=== PATIENT | female | born 1945 | race Caucasian/White ===

== ENCOUNTER 2021-05-21 12:50 | Inpatient (IN) | payer MEDICARE, SELFPAY ==
--- NOTE | 2021-05-21 15:23 | PC.ADMIT ---
China Lester is a 75 year who presented to the unit in a stretcher. China was escorted by flat spring assembler bringing her from [facility]. China presents with DM and reports checking sugars twice a day once before breakfast and once before bed time. China is independent and ambulates with a steady gate, China presented after a visit with her PCP. The PCP noted that China was off baseline, disorganized thoughts, tangential, and circumstantial responses to questions . China reports that she lives alone in an apartment on the first floor, and that her daughter and grandson live upstairs. China states that she is able to do all her own cooking, cleaning, groceries, showering, and driving. China report that she goes to the senior center often and participates in a chair workout class. China is presenting with heightened anxiety and states that she has been pulling out clumps of hair . She denies knowing what the anxiety is due to. China currently denies SI/HI/Ah/VH. She reports that she is feeling safe. China is alert and oriented x4. Patient is pleasant on approach and cooperative with admission. Patient is hyperverbal with pressured speech. China will answer a question with a lengthy response and then veer off course from the original question. China present with disorganized thought process. Patient reports that she has lost over 12 pounds and nobody know why. China states that she uses half a trazadone to sleep, but that hasn't been helping much anymore. My sleep has been off. Patient uses glasses at baselines. China has upper dentures with her, and reports that she has a partial denture for the bottom but she does not use it because she needs to see the dentist. China is currently being treated for a UTI as well. Patient denies any current complaints.
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
[2021-05-21 18:00] VITALS: BP 168/67; PULSE 74; RESP 18; TEMP 36.6; O2SAT 99
[2021-05-21] MEDS: cephALEXin 500 MG CAPSULE PO ×2 (18:07→20:16)
[2021-05-21] MEDS: metFORMIN HCl 1,000 MG TABLET 1000 MG PO (18:13)
[2021-05-21] MEDS: Gabapentin 100 MG CAPSULE PO (20:16)
[2021-05-21] MEDS: lamoTRIgine 25 MG TABLET PO (20:16)
[2021-05-21] MEDS: risperiDONE 0.25 MG TABLET PO (20:17)
[2021-05-21 21:46] LABS: Glucose, Whole Blood 99 mg/dL (60-115)
[2021-05-22 08:08] LABS: Anion Gap 12 (12-20); Blood Urea Nitrogen 17 mg/dL (9-16); Calcium 9.9 mg/dL (8.4-10.2); Carbon Dioxide 31 mmol/L (22-29); Chloride 103 mmol/L (96-108); Estimated Glomerular Filt Rate > 60; Glucose Random 133 mg/dL (60-115); Potassium 4.4 mmol/L (3.3-5.1); Sodium 142 mmol/L (135-145)
[2021-05-22 08:21] VITALS: BP 164/76; PULSE 85; RESP 17; TEMP 36.6; O2SAT 99
[2021-05-22] MEDS: cephALEXin 500 MG CAPSULE PO ×4 (08:31→20:23)
[2021-05-22] MEDS: Sertraline HCL 25 MG TABLET 75 MG PO (08:31)
[2021-05-22] MEDS: Gabapentin 100 MG CAPSULE PO ×2 (08:31→20:22)
[2021-05-22] MEDS: Atorvastatin Calcium 20 MG TABLET PO (08:31)
[2021-05-22] MEDS: metFORMIN HCl 1,000 MG TABLET 1000 MG PO ×2 (08:31→16:56)
[2021-05-22 10:53] LABS: Glucose, Whole Blood 153 mg/dL (60-115)
--- NOTE | 2021-05-22 14:08 | P.PNPSI_ITS ---
Subjective Subjective Date of Service: 05/22/21 Reason For Visit: si Interim History: pt seen on 05/22 pt manic, with pressured and disorganized speech, repeating the same sentence over and over, unable to finish a sentence. Pleasant and friendly with some insight saying she knows she rambles on and on and is trying to stop it but can not; no sI/hi or AVH. She referenced that she is being treated for UTI. Pt agrees to start Risperdal to help with the rambling. Mental Status Exam Mental Status Exam Narrative: A&O to person and place but only somewhat situation. In casual cloths, good hygiene but messy hair. Behavior is friendly and cooperative, with Good eye contact but distracted and moving about the room in disorganized way; No abnormal involuntary movements noted; pressured speech and difficult to interrupt; normal volume; Mood is ?anxious,? affect is anxious at times, but als o happy; Denies SI/SIB/HI upon inquiry. Denies A/VH. No delusional content expressed; Thought process can be briefly goal oriented but quickly becomes tangential and disorganized; and pt is unable to finish her sentences and sometimes gets caught up on a word, trying to annunciate it over and over but unable; Unknown cognitive or memory impairment. Insight/ Judgment impaired but knows needs help and wants medication. Diagnostics Vital Signs (24Hr): Vital Signs - 24 hr 05/21/21 18:00 05/22/21 08:21 Temperature 97.8 F 97.9 F Pulse Rate 74 85 Respiratory Rate 18 17 Blood Pressure 168/67 H 164/76 H Pulse Oximetry 99 99 Labs Results: 05/22/21 07:44 Labs: Laboratory Results - last 48 hr 05/21/21 05/22/21 05/22/21 21:42 07:44 10:38 Sodium 142 Potassium 4.4 Chloride 103 Carbon Dioxide 31 H Anion Gap 12 BUN 17 H Creatinine 0.79 Estim Creat Clear Calc TNP Estimated GFR > 60 POC Glucose 99 153 H Random Glucose 133 H Calcium 9.9 Medications Medications Current Medications Acetaminophen (Acetaminophen 325 Mg Tablet) 650 mg PO Q6H PRN PRN Reason: Headache/Pain Mild Scale (1-3) Al Hydroxide/Mg Hydroxide (Magnesium Hydrox/Alum Hydrox 30 Ml Oral.Susp) 30 ml PO Q6H PRN PRN Reason: Heartburn/Nausea Atorvastatin Calcium (Atorvastatin Calcium 20 Mg Tablet) 20 mg PO DAILY [facility] Last Admin: 05/22/21 08:31 Dose: 20 mg Documented by: Cephalexin HCl (Cephalexin 500 Mg Capsule) 500 mg PO QID [facility] Last Admin: 05/22/21 12:51 Dose: 500 mg Documented by: Gabapentin (Gabapentin 100 Mg Capsule) 100 mg PO BID [facility] Last Admin: 05/22/21 08:31 Dose: 100 mg Documented by: Hydroxyzine HCl (Hydroxyzine Hcl 25 Mg Tablet) 25 mg PO Q6H PRN PRN Reason: Anxiety Lamotrigine (Lamotrigine 25 Mg Tablet) 25 mg PO BEDTIME [facility] Last Admin: 05/21/21 20:16 Dose: 25 mg Documented by: Magnesium Hydroxide (Milk Of Magnesia 30 Ml Oral.Susp) 30 ml PO DAILY PRN PRN Reason: Constipation Metformin HCl (Metformin Hcl 1,000 Mg Tablet) 1,000 mg PO BIDWM [facility] Last Admin: 05/22/21 08:31 Dose: 1,000 mg Documented by: Risperidone (Risperidone 0.25 Mg Tablet) 0.5 mg PO BEDTIME [facility] Sertraline HCl (Sertraline Hcl 25 Mg Tablet) 75 mg PO DAILY [facility] Last Admin: 05/22/21 08:31 Dose: 75 mg Documented by: Trazodone HCl (Trazodone Hcl 50 Mg Tablet) 50 mg PO BEDTIME PRN PRN Reason: Insomnia Allergies Allergies Allergy/AdvReac Type Severity Reaction Status Date / Time No Known Allergies Allergy Verified 05/21/21 11:17 Assessment & Plan Assessment & Plan (1) MADELINE (generalized anxiety disorder): Status: Acute Code(s): F41.1 - Generalized anxiety disorder (2) Bipolar disorder, current episode hypomanic: Status: Acute Code(s): F31.0 - Bipolar disorder, current episode hypomanic Assessment and Plan: lyric writer covering pt seen 05/22 -friendly but manic with pressured and disorganized speech; disorganized beh avior -START Risperdal 0.5mg BID (will first give one time dose of 0.25) for rosemary, insomnia not resolving on low dose of Lamictal (which takes weeks to titrate to therapuetic dose) -will further lower Zoloft to 25mg to lower risk of it triggering rosemary, but will leave her for now to avoid discontinuation syndrome China is a 75 y.o. Female who carries a diagnosis of bipolar I disorder. She was referred to crisis due to presenting as off baseline, disorganized thought process, agitated, has been pulling out her hair on specific spot on her head, increased anxiety, and poor sleep/ appetite. She has hx of IPLOC at [place] in 2020. No current OP providers. Presents with recent memory issues, remote memory appears intact. Has hx of workup for dementia 2 yr ago, results did not show any pathology but family would like her to be re-assessed. Plan: Obtain records from PCP to review MRI, neuropsych testing from 2 yr ago. Obtain updated MOCA. Continue lamictal 25 mg and gabapentin 100 mg BID for mood stability, consider discontinuing gabapentin and optimizing dose of lamictal due to polypharm, uknown benefit Discontinue trazodone 25 mg as she denies benefit for sleep Decrease sertraline to 75 mg due to possible activating side effects, monitor for improvement in sx and consider titrating down on dose as it may be exacerbating sx Start risperdal 0.25 mg QHS for significant anxious distress, disorganized thought process Monitor response to medications. Monitor for safety in the milieu. Discharge on stabilization. Patient seen. Chart reviewed. Discussed with team. Obtain collateral contact info?as needed Greater than 50% of the session was spent on counseling and/or coordination of care Reason for contiued inpatient stay Substantial Risk for: inability to function
[2021-05-22 15:18] VITALS: BMI 22.6
--- NOTE | 2021-05-22 15:20 | HO.HSGERICON ---
History of Present Illness Data of Consult Service Date: 05/22/21 Requesting physician: Shirin Henderson Primary Care Provider: Unknown Physician HPI Reason for consult: transferred from outside facility This is a 75 year old female with a history of DM, bipolar disorder transferred to inpatient geriatric psych floor from [facility] for disorganized thoughts and increasing anxiety. The hospitalist service was consulted for routine medical evaluation as the patient was transferred from an outside facility. It was difficult to obtain an accurate history from the patient as she is disorganized, having difficulty focusing on questions and frequently interrupting. She was started on keflex for possible UTI at outside facility, she does not appear to have any urinary symptoms although this was difficult to ascertain. She denies any abdominal pain, nausea, vomiting. She denies any fever, chills. She does endorse urinary urgency although it is unclear if this is acute or chronic. She is focused on an area on her head where she states that she pulls her hair. She thinks area is causing her to act abnormally. Review of Systems Review of Systems: Yes all other systems are reviewed and are negative Constitutional: Constitutional: Denies chills and Denies fever(s) Cardiovascular: Cardiovascular: Denies chest pain Respiratory: Respiratory: Denies cough Gastrointestinal: Gastrointestinal: Denies abdominal pain [facility] Medical History (Updated 05/22/21 @ 15:29 by AMOS Iqbal) Diabetes HTN (hypertension) Functional capacity: independent ambulation Pertinent family history: mom - h/o CAD Social History Household Members: None Household Members Other:: Daughter lives up stairs in top floor apartment Housing: Apartment Patient Tobacco Use Status: Never used Tobacco Smoked in Last 30 Days: No Patient Interested in Nicotine Replacement: No Patient Given Instructions on How to Stop Smoking: No Second Hand Smoke Exposure: No Use of substances other than those prescribed or required for medical reasons: No Currently Displaying Signs/Symptoms of Drug Intoxication Withdrawal: No Any prior treatment program specific to substance use: No Have you been hit, kicked, punched, or otherwise hurt by someone within the past year? If so, by whom?: No Do you feel safe in your current relationship?: No Current Relationship Is there a partner from a previous relationship who is making you feel unsafe now?: No Are you made to feel afraid or neglected: No Advance Directives: No Advance Directives Information Provided: No Do you have thoughts of harming others: None Do you have a plan to hurt others: No Plan Recently lost weight without trying: Yes How much weight loss: 2-13 pounds Eating poorly because of decreased appetite: No Nutrition screen score: 3 Patient : No : No Poor oral hygiene: Yes (partial dentures on bottom missing, dentures on top.) service: No Sexual orientation: Straight/Heterosexual Meds Allergies Allergy/AdvReac Type Severity Reaction Status Date / Time No Known Allergies Allergy Verified 05/21/21 11:17 Active Medications: Current Medications Acetaminophen (Acetaminophen 325 Mg Tablet) 650 mg PO Q6H PRN PRN Reason: Headache/Pain Mild Scale (1-3) Al Hydroxide/Mg Hydroxide (Magnesium Hydrox/Alum Hydrox 30 Ml Oral.Susp) 30 ml PO Q6H PRN PRN Reason: Heartburn/Nausea Atorvastatin Calcium (Atorvastatin Calcium 20 Mg Tablet) 20 mg PO DAILY [facility] Last Admin: 05/22/21 08:31 Dose: 20 mg Documented by: Cephalexin HCl (Cephalexin 500 Mg Capsule) 500 mg PO QID [facility] Last Admin: 05/22/21 12:51 Dose: 500 mg Documented by: Dextrose (Dextrose 50 % 25 Gm/50 Ml Vial) 25 gm IVPUSH Q15M PRN; Protocol PRN Reason: per Hypoglycemia Standing Ord. Gabapentin (Gabapentin 100 Mg Capsule) 100 mg PO BID [facility] Last Admin: 05/22/21 08:31 Dose: 100 mg Documented by: Glucose (Glucose Gel 15 Gm Gel..Gram.) 15 gm PO Q15M PRN; Protocol PRN Reason: per Hypoglycemia Standing Ord. Hydroxyzine HCl (Hydroxyzine Hcl 25 Mg Tablet) 25 mg PO Q6H PRN PRN Reason: Anxiety Insulin Human Lispro (Insulin Lispro 100 Unit/Ml 3 Ml Vial) 0 unit SUBCUT QIDACHS [facility]; Protocol Lamotrigine (Lamotrigine 25 Mg Tablet) 25 mg PO BEDTIME [facility] Last Admin: 05/21/21 20:16 Dose: 25 mg Documented by: Magnesium Hydroxide (Milk Of Magnesia 30 Ml Oral.Susp) 30 ml PO DAILY PRN PRN Reason: Constipation Metformin HCl (Metformin Hcl 1,000 Mg Tablet) 1,000 mg PO BIDWM [facility] Last Admin: 05/22/21 08:31 Dose: 1,000 mg Documented by: Risperidone (Risperidone 0.25 Mg Tablet) 0.5 mg PO BEDTIME [facility] Sertraline HCl (Sertraline Hcl 50 Mg Tablet) 50 mg PO DAILY [facility] Trazodone HCl (Trazodone Hcl 50 Mg Tablet) 50 mg PO BEDTIME PRN PRN Reason: Insomnia Home Medications Medication Instructions Recorded Confirmed Last Taken Type blood sugar diagnostic (FreeStyle 05/21/21 05/21/21 Unknown History Lite Strips) gabapentin 100 mg capsule cap PO 05/21/21 Unknown History gabapentin 100 mg capsule cap PO 05/21/21 Unknown History lamotrigine 25 mg tablet 1 tab PO DAILY 05/21/21 05/21/21 Unknown History lancets 28 gauge (FreeStyle 05/21/21 05/21/21 Unknown History Lancets) metformin 1,000 mg tablet 1 tab PO BID 05/21/21 05/21/21 Unknown History sertraline 100 mg tablet 1 tab PO DAILY 05/21/21 05/21/21 Unknown History simvastatin 20 mg tablet 1 tab PO BEDTIME 05/21/21 05/21/21 Unknown History trazodone 50 mg tablet 0.5 tab PO BEDTIME PRN 05/21/21 05/21/21 Unknown History Results Labs CBC and Chem 7: 05/22/21 07:44 Labs: Laboratory Results - last 24 hr 05/21/21 05/22/21 05/22/21 21:42 07:44 10:38 Anion Gap 12 Estim Creat Clear Calc TNP Estimated GFR > 60 POC Glucose 99 153 H Random Glucose 133 H Calcium 9.9 Assessment and Plan (1) UTI (urinary tract infection): Status: Acute this is a 75-year-old female with history of diabetes admitted for management of increasing anxiety and disorganized thoughts UTI initially diagnosed at outside facility, no UA available, has been on abx, so repeat UA may be inaccurate unclear if pt symptomatic as history is difficult to obtain can continue keflex for total 5 days DM SSI, POCs qidac continue metformin ADA diet HLD continue statin Uncontrolled BP BP somewhat elevated. Not currently on medication Monitor BP, if consistently high (>160), would consider starting antihypertensive medication Underlying anxiety may be playing a role Rec low sodium diet Thank you for allowing us to participate in the care of this patient. Attending: dr. Conklin Physical Exam Vital Signs: Last Vital Signs Temp 97.9 F 05/22/21 08:21 Pulse 85 05/22/21 08:21 Resp 17 05/22/21 08:21 BP 164/76 H 05/22/21 08:21 Pulse Ox 99 05/22/21 08:21 Body Mass Index 22.6 Const General: comfortable, alert and awake Nutritional Appearance: well nourished [facility] Head: Yes normocephalic and Yes atraumatic Eyes Sclerae: sclerae normal Resp Effort & Inspection: normal respiratory effort and no respiratory distress Auscultation: clear to auscultation bilaterally Cardio Rate: regular rate Rhythm: regular rhythm GI Palpation (GI): Soft to palpation and nontender Neuro Cranial nerves: Yes CN's II-XII intact bilaterally and Yes Bilaterally intact EOM present Extrem Other: no leg edema Psych Appearance: well kempt Speech and movement: Pressured speech present Affect: Anxious affect present Thought process: Tangential thought process present
[2021-05-22 16:16] LABS: Glucose, Whole Blood 160 mg/dL (60-115)
[2021-05-22 18:00] VITALS: BP 154/65; PULSE 85; RESP 20; TEMP 36.4; O2SAT 99
[2021-05-22] MEDS: risperiDONE 0.25 MG TABLET 0.5 MG PO (20:22)
[2021-05-22] MEDS: lamoTRIgine 25 MG TABLET PO (20:23)
[2021-05-22] MEDS: traZODone HCL 50 MG TABLET PO (20:41)
[2021-05-22 21:07] LABS: Glucose, Whole Blood 174 mg/dL (60-115)
[2021-05-23 07:47] LABS: Glucose, Whole Blood 122 mg/dL (60-115)
[2021-05-23] MEDS: Gabapentin 100 MG CAPSULE PO ×2 (07:54→19:55)
[2021-05-23] MEDS: Atorvastatin Calcium 20 MG TABLET PO (07:55)
[2021-05-23] MEDS: cephALEXin 500 MG CAPSULE PO ×4 (07:55→19:55)
[2021-05-23] MEDS: metFORMIN HCl 1,000 MG TABLET 1000 MG PO ×2 (07:55→16:44)
[2021-05-23] MEDS: Sertraline HCL 50 MG TABLET PO (08:17)
[2021-05-23 08:48] VITALS: BP 128/59; PULSE 89; RESP 16; TEMP 36.5; O2SAT 97
[2021-05-23 11:26] LABS: Glucose, Whole Blood 106 mg/dL (60-115)
[2021-05-23] MEDS: risperiDONE 0.5 MG TABLET PO (15:04)
[2021-05-23] MEDS: lamoTRIgine 25 MG TABLET PO (19:55)
[2021-05-23] MEDS: risperiDONE 0.25 MG TABLET 0.5 MG PO (19:55)
[2021-05-23 20:28] VITALS: BP 137/65; PULSE 81; RESP 18; TEMP 36.7; O2SAT 99
[2021-05-23 21:51] LABS: Glucose, Whole Blood 141 mg/dL (60-115)
[2021-05-24 07:47] LABS: Glucose, Whole Blood 136 mg/dL (60-115)
[2021-05-24] MEDS: Sertraline HCL 50 MG TABLET PO (09:00)
[2021-05-24] MEDS: metFORMIN HCl 1,000 MG TABLET 1000 MG PO ×2 (10:08→18:00)
[2021-05-24] MEDS: Atorvastatin Calcium 20 MG TABLET PO (10:08)
[2021-05-24] MEDS: Gabapentin 100 MG CAPSULE PO ×2 (10:08→20:24)
[2021-05-24] MEDS: cephALEXin 500 MG CAPSULE PO ×4 (10:08→20:25)
[2021-05-24] MEDS: risperiDONE 0.25 MG TABLET 0.5 MG PO ×2 (10:09→20:24)
--- NOTE | 2021-05-24 11:21 | P.PNPSI_ITS ---
Subjective Subjective Date of Service: 05/23/21 Reason For Visit: si Interim History: pt seen on 05/23 pt slept last night (woke up 2x but only briefly) pt a little bit more organized and linear in conversation; still gets tangential but more organized; friendly, good mood, tolerating Rispderal which she reviewed with freelance copywriter -hospitalist increased POC to QID and added sliding scale which has been agitating patient; freelance copywriter discussed with Hospsitalist who agrees that BID POC is adequate Mental Status Exam Mental Status Exam Narrative: A&O to person and place and mostly to situation. In casual cloths, good hygiene but messy hair. Behavior is friendly and cooperative, with Good eye contact but distracted; less psychomotor movements, sitting calmly; No abnormal involuntary movements noted; pressured speech and difficult to interrupt; normal volume; Mood is ?good,? affect is friendly; Denies SI/SIB/HI upon inquiry. Denies A/VH. No delusional content expressed; Thought process can be more able to be goal oriented but still becomes tangential though overall more organized and pt is more able to finish her sentences; Unknown cognitive or memory impairment. Insight/ Judgment impaired but knows needs help and wants medication. Diagnostics Vital Signs (24Hr): Vital Signs - 24 hr 05/23/21 20:28 Temperature 98.1 F Pulse Rate 81 Respiratory Rate 18 Blood Pressure 137/65 Pulse Oximetry 99 Body Mass Index 22.6 Labs Results: 05/22/21 07:44 Labs: Laboratory Results - last 48 hr 05/22/21 05/22/21 05/23/21 16:10 20:28 07:43 POC Glucose 160 H 174 H 122 H 05/23/21 05/23/21 05/24/21 11:22 20:02 07:42 POC Glucose 106 141 H 136 H Medications Medications Current Medications Acetaminophen (Acetaminophen 325 Mg Tablet) 650 mg PO Q6H PRN PRN Reason: Headache/Pain Mild Scale (1-3) Al Hydroxide/Mg Hydroxide (Magnesium Hydrox/Alum Hydrox 30 Ml Oral.Susp) 30 ml PO Q6H PRN PRN Reason: Heartburn/Nausea Atorvastatin Calcium (Atorvastatin Calcium 20 Mg Tablet) 20 mg PO DAILY [facility] Last Admin: 05/24/21 10:08 Dose: 20 mg Documented by: Cephalexin HCl (Cephalexin 500 Mg Capsule) 500 mg PO QID [facility] Last Admin: 05/24/21 10:08 Dose: 500 mg Documented by: Dextrose (Dextrose 50 % 25 Gm/50 Ml Vial) 25 gm IVPUSH Q15M PRN; Protocol PRN Reason: per Hypoglycemia Standing Ord. Gabapentin (Gabapentin 100 Mg Capsule) 100 mg PO BID [facility] Last Admin: 05/24/21 10:08 Dose: 100 mg Documented by: Glucose (Glucose Gel 15 Gm Gel..Gram.) 15 gm PO Q15M PRN; Protocol PRN Reason: per Hypoglycemia Standing Ord. Hydroxyzine HCl (Hydroxyzine Hcl 25 Mg Tablet) 25 mg PO Q6H PRN PRN Reason: Anxiety Insulin Human Lispro (Insulin Lispro 100 Unit/Ml 3 Ml Vial) 0 unit SUBCUT QIDACHS [facility]; Protocol Last Admin: 05/23/21 22:48 Dose: Not Given Documented by: Lamotrigine (Lamotrigine 25 Mg Tablet) 25 mg PO BEDTIME [facility] Last Admin: 05/23/21 19:55 Dose: 25 mg Documented by: Magnesium Hydroxide (Milk Of Magnesia 30 Ml Oral.Susp) 30 ml PO DAILY PRN PRN Reason: Constipation Metformin HCl (Metformin Hcl 1,000 Mg Tablet) 1,000 mg PO BIDWM [facility] Last Admin: 05/24/21 10:08 Dose: 1,000 mg Documented by: Risperidone (Risperidone 0.25 Mg Tablet) 0.5 mg PO BID [facility] Last Admin: 05/24/21 10:09 Dose: 0.5 mg Documented by: Sertraline HCl (Sertraline Hcl 50 Mg Tablet) 50 mg PO DAILY [facility] Last Admin: 05/23/21 08:17 Dose: 50 mg Documented by: Trazodone HCl (Trazodone Hcl 50 Mg Tablet) 50 mg PO BEDTIME PRN PRN Reason: Insomnia Last Admin: 05/22/21 20:41 Dose: 50 mg Documented by: Allergies Allergies Allergy/AdvReac Type Severity Reaction Status Date / Time No Known Allergies Allergy Verified 05/21/21 11:17 Assessment & Plan Assessment & Plan (1) MADELINE (generalized anxiety disorder): Status: Acute Code(s): F41.1 - Generalized anxiety disorder (2) Bipolar disorder, current episode hypomanic: Status: Acute Code(s): F31.0 - Bipolar disorder, current episode hypomanic Assessment and Plan: WEEKEND COVERAGE pt seen 05/23 -friendly but manic with pressured and disorganized speech; disorganized behavior; slept better last night; speech a little more linear and organized today -Continue Risperdal 0.5mg BID (will first give one time dose of 0.25) for rosemary, insomnia not resolving on low dose of Lamictal (which takes weeks to titrate to therapuetic dose) -Lowered Zoloft to 25mg to lower risk of it triggering rosemary, but will leave her for now to avoid discontinuation syndrome -hospitalist increased POC to QID and added sliding scale which has been agitating patient; freelance copywriter discussed with Hospsitalist who agrees that BID POC is adequate IMPRESSION: [place] is a 75 y.o. Female who carries a diagnosis of bipolar I disorder. She was referred to crisis due to presenting as off baseline, disorganized thought pro cess, agitated, has been pulling out her hair on specific spot on her head, increased anxiety, and poor sleep/ appetite. She has hx of IPLOC at [place] in 2020. No current OP providers. Presents with recent memory issues, remote memory appears intact. Has hx of workup for dementia 2 yr ago, results did not show any pathology but family would like her to be re-assessed. Plan: Obtain records from PCP to review MRI, neuropsych testing from 2 yr ago. Obtain updated MOCA. Continue lamictal 25 mg and gabapentin 100 mg BID for mood stability, consider discontinuing gabapentin and optimizing dose of lamictal due to polypharm, uknown benefit Discontinue trazodone 25 mg as she denies benefit for sleep Decrease sertraline to 75 mg due to possible activating side effects, monitor for improvement in sx and consider titrating down on dose as it may be exacerbating sx Start risperdal 0.25 mg QHS for significant anxious distress, disorganized thought process Monitor response to medications. Monitor for safety in the milieu. Discharge on stabilization. Patient seen. Chart reviewed. Discussed with team. Obtain collateral contact info?as needed Greater than 50% of the session was spent on counseling and/or coordination of care Reason for contiued inpatient stay Substantial Risk for: inability to function
--- NOTE | 2021-05-24 11:28 | HO.PSYCHPN ---
Subjective Subjective Date of Service: 05/24/21 Reason For Visit: si Interim History: pt is sitting comfortably in day room, eating; hair neatly combed pt is good she says she thinks she's getting better since she remembered her dentures today before she came down for food. She slept last night, only waking up briefly. She is organized enough to discuss medications and lists her medications accurately; she asks why she has to be on insulin in hospital and that blood sugar of 140 did not seem worrisome to her; she talked about her HBA1C is checked by outpt doc; she accepted writers explanation that it's there just in case. Pt asks if she'll be able to go home this and says family meeting set up for this week. Pt says she's working on trying not to ramble and short story writer encourages her that she' doing a good job. Mental Status Exam Mental Status Exam Narrative: A&O to person and place and to situation. In casual cloths, good hygiene and clean, well combed hair; Behavior is friendly and cooperative, with Good eye contact; less psychomotor movements, sitting calmly; No abnormal involuntary movements noted; still pressured speech but a easier to interrupt and able to listen to short story writer; speech normal volume; Mood is ?good,? affect is friendly;? Denies SI/SIB/HI upon inquiry. Denies A/VH. No delusional content expressed; Thought process more able to be goal oriented but still becomes circumstantial or tangential; overall more organized; Unknown cognitive or memory impairment. Insight/ Judgment impaired but improved, adequate; knows needs help and wants medication. Diagnostics Vital Signs (24Hr): Vital Signs - 24 hr 05/23/21 20:28 Temperature 98.1 F Pulse Rate 81 Respiratory Rate 18 Blood Pressure 137/65 Pulse Oximetry 99 Body Mass Index 22.6 Labs Results: 05/22/21 07:44 Labs: Laboratory Results - last 48 hr 05/22/21 05/22/21 05/23/21 16:10 20:28 07:43 POC Glucose 160 H 174 H 122 H 05/23/21 05/23/21 05/24/21 11:22 20:02 07:42 POC Glucose 106 141 H 136 H Medications Medications Current Medications Acetaminophen (Acetaminophen 325 Mg Tablet) 650 mg PO Q6H PRN PRN Reason: Headache/Pain Mild Scale (1-3) Al Hydroxide/Mg Hydroxide (Magnesium Hydrox/Alum Hydrox 30 Ml Oral.Susp) 30 ml PO Q6H PRN PRN Reason: Heartburn/Nausea Atorvastatin Calcium (Atorvastatin Calcium 20 Mg Tablet) 20 mg PO DAILY [facility] Last Admin: 05/24/21 10:08 Dose: 20 mg Documented by: Cephalexin HCl (Cephalexin 500 Mg Capsule) 500 mg PO QID [facility] Last Admin: 05/24/21 10:08 Dose: 500 mg Documented by: Dextrose (Dextrose 50 % 25 Gm/50 Ml Vial) 25 gm IVPUSH Q15M PRN; Protocol PRN Reason: per Hypoglycemia Standing Ord. Gabapentin (Gabapentin 100 Mg Capsule) 100 mg PO BID [facility] Last Admin: 05/24/21 10:08 Dose: 100 mg Documented by: Glucose (Glucose Gel 15 Gm Gel..Gram.) 15 gm PO Q15M PRN; Protocol PRN Reason: per Hypoglycemia Standing Ord. Hydroxyzine HCl (Hydroxyzine Hcl 25 Mg Tablet) 25 mg PO Q6H PRN PRN Reason: Anxiety Insulin Human Lispro (Insulin Lispro 100 Unit/Ml 3 Ml Vial) 0 unit SUBCUT QIDACHS [facility]; Protocol Last Admin: 05/23/21 22:48 Dose: Not Given Documented by: Lamotrigine (Lamotrigine 25 Mg Tablet) 25 mg PO BEDTIME [facility] Last Admin: 05/23/21 19:55 Dose: 25 mg Documented by: Magnesium Hydroxide (Milk Of Magnesia 30 Ml Oral.Susp) 30 ml PO DAILY PRN PRN Reason: Constipation Metformin HCl (Metformin Hcl 1,000 Mg Tablet) 1,000 mg PO BIDWM [facility] Last Admin: 05/24/21 10:08 Dose: 1,000 mg Documented by: Risperidone (Risperidone 0.25 Mg Tablet) 0.5 mg PO BID [facility] Last Admin: 05/24/21 10:09 Dose: 0.5 mg Documented by: Sertraline HCl (Sertraline Hcl 50 Mg Tablet) 50 mg PO DAILY [facility] Last Admin: 05/23/21 08:17 Dose: 50 mg Documented by: Trazodone HCl (Trazodone Hcl 50 Mg Tablet) 50 mg PO BEDTIME PRN PRN Reason: Insomnia Last Admin: 05/22/21 20:41 Dose: 50 mg Documented by: Allergies Allergies Allergy/AdvReac Type Severity Reaction Status Date / Time No Known Allergies Allergy Verified 05/21/21 11:17 Assessment & Plan Assessment & Plan (1) MADELINE (generalized anxiety disorder): Status: Acute Code(s): F41.1 - Generalized anxiety disorder (2) Bipolar disorder, current episode hypomanic: Status: Acute Code(s): F31.0 - Bipolar disorder, current episode hypomanic Assessment and Plan: WEEKEND COVERAGE pt seen 05/24 -friendly; still with manic symptoms and pressured speech that becomes circumstantial and tangential, but overall pt has improved, sleeping at night and no longer with psychomotor agitation and is able to sit calmly enough to read; no disorganized behavior -She is still not back to baseline and hyperverbal, often rambling and short story writer considered increasing Risperdal dose; however, given her age and that she has been improving on current Risperdal dose, short story writer will leave at 0.5mg BiD for now to see if she improves further; will othewise defer to primary team whether to titrate. -Continue Risperdal 0.5mg BID for rosemary which was not resolving on low dose of Lamictal (which takes weeks to titrate to therapuetic dose) -Lowered Zoloft to 25mg to lower risk of it triggering rosemary, but will leave her for now to avoid discontinuation syndrome -hospitalist increased POC to QID and added sliding scale which has been agitating patient; short story writer discussed with Hospsitalist who agrees that BID POC is adequate IMPRESSION: [place] is a 75 y.o. Female who carries a diagnosis of bipolar I disorder. She was referred to crisis due to presenting as off baseline, disorganized thought process, agitated, has been pulling out her hair on specific spot on her head, increased anxiety, and poor sleep/ appetite. She has hx of IPLOC at [place] in 2020. No current OP providers. Presents with recent memory issues, remote memory appears intact. Has hx of workup for dementia 2 yr ago, results did not show any pathology but family would like her to be re-assessed. Plan: Obtain records from PCP to review MRI, neuropsych testing from 2 yr ago. Obtain updated MOCA. Continue lamictal 25 mg and gabapentin 100 mg BID for mood stability, consider discontinuing gabapentin and optimizing dose of lamictal due to polypharm, uknown benefit Discontinue trazodone 25 mg as she denies benefit for sleep Decrease sertraline to 75 mg due to possible activating side effects, monitor for improvement in sx and consider titrating down on dose as it may be exacerbating sx Start risperdal 0.25 mg QHS for significant anxious distress, disorganized thought process Monitor response to medications. Monitor for safety in the milieu. Discharge on stabilization. Patient seen. Chart reviewed. Discussed with team. Obtain collateral contact info?as needed Greater than 50% of the session was spent on counseling and/or coordination of care Reason for contiued inpatient stay Substantial Risk for: rapid decompensation
--- NOTE | 2021-05-24 16:02 | MHC.CLN ---
Addendum entered by Yanique Aden, CRYSTAL 05/24/21 16:04: PATIENT REPORTS SOME WEIGHT LOSS, BUT UNCLEAR ON AMOUNT OR TIMEFRAME. REPORTS THAT EATING HEALTHIER AND CUTTING DOWN ON SUGARS. Original Note: NUTRITION DIET CHANGED FROM DIABETIC 2200 KCAL TO DIABETIC 1800 KCAL. DIET=DIABETIC 1800 KCAL, 2 GRAM SODIUM.
[2021-05-24 18:00] VITALS: BP 127/60; PULSE 84; RESP 16; TEMP 36.3; O2SAT 100
[2021-05-24] MEDS: lamoTRIgine 25 MG TABLET PO (20:24)
[2021-05-24 20:45] LABS: Glucose, Whole Blood 116 mg/dL (60-115)
[2021-05-25 06:00] VITALS: BP 137/64; PULSE 92; RESP 16; TEMP 36.7; O2SAT 99
[2021-05-25 07:53] LABS: Glucose, Whole Blood 133 mg/dL (60-115)
[2021-05-25] MEDS: metFORMIN HCl 1,000 MG TABLET 1000 MG PO ×2 (08:21→17:07)
[2021-05-25] MEDS: Gabapentin 100 MG CAPSULE PO ×2 (08:21→21:35)
[2021-05-25] MEDS: Sertraline HCL 50 MG TABLET PO (08:21)
[2021-05-25] MEDS: cephALEXin 500 MG CAPSULE PO ×4 (08:21→21:35)
[2021-05-25] MEDS: risperiDONE 0.25 MG TABLET 0.5 MG PO (08:22)
[2021-05-25] MEDS: Atorvastatin Calcium 20 MG TABLET PO (08:22)
--- NOTE | 2021-05-25 13:51 | P.PNPSI_ITS ---
Subjective Subjective Date of Service: 05/25/21 Reason For Visit: si Subjective Notes: Conditional Voluntary Interim History: The nursing staff reported that her pressured speech has improved but still she is very verbal with pressured speech. On interview, she reported that she is doing better but it was clear that she is still manic with fast speech . Medication Compliance: Yes Side effects from medications: No Attending Groups: Intermittent Review of Systems Acute medical concerns: Yes UTI treated Medical Review of Systems: unchanged Mental Status Exam Mental Status Exam Patient Appearance: Well Grooomed Patient Orientation: Person Level of Consciousness: Awake Patient Behavior: Appropriate and Cooperative Mood Description: Expansive Affect Description: Constricted Ability to Follow Directions: Good Speech Pattern: Pressured Hallucinations: None Delusions: Not Present Thought Process: Evasive Thought Content: positive for Poverty of Content Judgement: Fair Diagnostics Vital Signs (24Hr): Vital Signs - 24 hr 05/24/21 18:00 05/25/21 06:00 Temperature 97.3 F 98.1 F Pulse Rate 84 92 Respiratory Rate 16 16 Blood Pressure 127/60 137/64 Pulse Oximetry 100 99 Body Mass Index 22.6 Labs Results: 05/22/21 07:44 Labs: Laboratory Results - last 48 hr 05/23/21 05/24/21 05/24/21 20:02 07:42 20:28 POC Glucose 141 H 136 H 116 H 05/25/21 07:34 POC Glucose 133 H Medications Medications Current Medications Acetaminophen (Acetaminophen 325 Mg Tablet) 650 mg PO Q6H PRN PRN Reason: Headache/Pain Mild Scale (1-3) Al Hydroxide/Mg Hydroxide (Magnesium Hydrox/Alum Hydrox 30 Ml Oral.Susp) 30 ml PO Q6H PRN PRN Reason: Heartburn/Nausea Atorvastatin Calcium (Atorvastatin Calcium 20 Mg Tablet) 20 mg PO DAILY COUNT INCLUDES THE [facility] Last Admin: 05/25/21 08:22 Dose: 20 mg Documented by: Cephalexin HCl (Cephalexin 500 Mg Capsule) 500 mg PO QID COUNT INCLUDES THE [facility] Last Admin: 05/25/21 08:21 Dose: 500 mg Documented by: Dextrose (Dextrose 50 % 25 Gm/50 Ml Vial) 25 gm IVPUSH Q15M PRN; Protocol PRN Reason: per Hypoglycemia Standing Ord. Gabapentin (Gabapentin 100 Mg Capsule) 100 mg PO BID COUNT INCLUDES THE [facility] Last Admin: 05/25/21 08:21 Dose: 100 mg Documented by: Glucose (Glucose Gel 15 Gm Gel..Gram.) 15 gm PO Q15M PRN; Protocol PRN Reason: per Hypoglycemia Standing Ord. Hydroxyzine HCl (Hydroxyzine Hcl 25 Mg Tablet) 25 mg PO Q6H PRN PRN Reason: Anxiety Insulin Human Lispro (Insulin Lispro 100 Unit/Ml 3 Ml Vial) 0 unit SUBCUT BID [facility]; Protocol Lamotrigine (Lamotrigine 25 Mg Tablet) 25 mg PO BEDTIME [facility] Last Admin: 05/24/21 20:24 Dose: 25 mg Documented by: Magnesium Hydroxide (Milk Of Magnesia 30 Ml Oral.Susp) 30 ml PO DAILY PRN PRN Reason: Constipation Metformin HCl (Metformin Hcl 1,000 Mg Tablet) 1,000 mg PO BIDWM [facility] Last Admin: 05/25/21 08:21 Dose: 1,000 mg Documented by: Risperidone (Risperidone 1 Mg Tablet) 1 mg PO BID [facility] Sertraline HCl (Sertraline Hcl 50 Mg Tablet) 50 mg PO DAILY COUNT INCLUDES [facility] Last Admin: 05/25/21 08:21 Dose: 50 mg Documented by: Trazodone HCl (Trazodone Hcl 50 Mg Tablet) 50 mg PO BEDTIME PRN PRN Reason: Insomnia Last Admin: 05/22/21 20:41 Dose: 50 mg Documented by: Allergies Allergies Allergy/AdvReac Type Severity Reaction Status Date / Time No Known Allergies Allergy Verified 05/21/21 11:17 Assessment & Plan Assessment & Plan (1) MADELINE (generalized anxiety disorder): Status: Acute Code(s): F41.1 - Generalized anxiety disorder (2) Bipolar disorder, current episode hypomanic: Status: Acute Code(s): F31.0 - Bipolar disorder, current episode hypomanic Assessment and Plan: [place] is a 75 y.o. Female who carries a diagnosis of bipolar I disorder. She was referred to crisis due to presenting as off baseline, disorganized thought process, agitated, has been pulling out her hair on specific spot on her head, increased anxiety, and poor sleep/ appetite. She has hx of IPLOC at [place] in 2020. No current OP providers. Presents with recent memory issues, remote memory appears intact. Has hx of workup for dementia 2 yr ago, results did not show any pathology but family would like her to be re-assessed. Plan: Increase Risperdal up to 1 mg po bid. Keep Zoloft and other medications. Get collateral information Greater than 50% of the session was spent on counseling and/or coordination of care Reason for contiued inpatient stay Substantial Risk for: inability to function, rapid decompensation and med/psych decompensation
[2021-05-25 20:47] VITALS: BP 127/66; PULSE 86; RESP 17; TEMP 36.3; O2SAT 97
[2021-05-25 21:00] LABS: Glucose, Whole Blood 141 mg/dL (60-115)
[2021-05-25] MEDS: risperiDONE 1 MG TABLET PO (21:35)
[2021-05-25] MEDS: lamoTRIgine 25 MG TABLET PO (21:35)
[2021-05-26 06:00] VITALS: BP 116/55; PULSE 80; TEMP 36; O2SAT 99
[2021-05-26 07:47] LABS: Glucose, Whole Blood 141 mg/dL (60-115)
[2021-05-26] MEDS: Gabapentin 100 MG CAPSULE PO ×2 (07:50→20:05)
[2021-05-26] MEDS: Sertraline HCL 25 MG TABLET PO (07:50)
[2021-05-26] MEDS: metFORMIN HCl 1,000 MG TABLET 1000 MG PO ×2 (07:50→16:42)
[2021-05-26] MEDS: risperiDONE 1 MG TABLET PO ×2 (07:50→20:06)
[2021-05-26] MEDS: cephALEXin 500 MG CAPSULE PO ×4 (07:50→20:05)
[2021-05-26] MEDS: Atorvastatin Calcium 20 MG TABLET PO (10:36)
--- NOTE | 2021-05-26 15:13 | HO.PSYCHPN ---
Subjective Subjective Date of Service: 05/26/21 Reason For Visit: si Subjective Notes: Conditional Voluntary Interim History: The nursing staff reported the patient has been anxious with pressured speech but she seems much better. She has been compliant with her antibiotics and so far she denies dysuria or any other urinary symptoms. On interview, the patient denies new symptoms she states that she is doing fine but still she has fast speech with flight of ideas. We have a family meeting today and we explained to her daughters about her mental status and diagnosis. She scored 15/30 on the [place] and it seems that her cognition has been deteriorated in the last years. Mental Status Exam Mental Status Exam Patient Appearance: Well Grooomed Patient Orientation: Person and Situation Level of Consciousness: Awake Patient Behavior: Cooperative Mood Description: Constricted Affect Description: Constricted Ability to Follow Directions: Good Speech Pattern: Appropriate Memory Description: Intact Hallucinations: None Delusions: Grandiose Thought Process: Confusion (Flight of ideas) Thought Content: positive for Circumstantial Judgement: Fair Diagnostics Vital Signs (24Hr): Vital Signs - 24 hr 05/25/21 20:47 05/26/21 06:00 Temperature 97.4 F 96.8 F Pulse Rate 86 80 Respiratory Rate 17 Blood Pressure 127/66 116/55 L Pulse Oximetry 97 99 Body Mass Index 22.6 Labs Results: 05/22/21 07:44 Labs: Laboratory Results - last 48 hr 05/24/21 05/25/21 05/25/21 20:28 07:34 20:56 POC Glucose 116 H 133 H 141 H 05/26/21 07:42 POC Glucose 141 H Medications Medications Current Medications Acetaminophen (Acetaminophen 325 Mg Tablet) 650 mg PO Q6H PRN PRN Reason: Headache/Pain Mild Scale (1-3) Al Hydroxide/Mg Hydroxide (Magnesium Hydrox/Alum Hydrox 30 Ml Oral.Susp) 30 ml PO Q6H PRN PRN Reason: Heartburn/Nausea Atorvastatin Calcium (Atorvastatin Calcium 20 Mg Tablet) 20 mg PO DAILY [facility] Last Admin: 05/26/21 10:36 Dose: 20 mg Documented by: Cephalexin HCl (Cephalexin 500 Mg Capsule) 500 mg PO QID [facility] Last Admin: 05/26/21 13:45 Dose: 500 mg Documented by: Dextrose (Dextrose 50 % 25 Gm/50 Ml Vial) 25 gm IVPUSH Q15M PRN; Protocol PRN Reason: per Hypoglycemia Standing Ord. Gabapentin (Gabapentin 100 Mg Capsule) 100 mg PO BID [facility] Last Admin: 05/26/21 07:50 Dose: 100 mg Documented by: Glucose (Glucose Gel 15 Gm Gel..Gram.) 15 gm PO Q15M PRN; Protocol PRN Reason: per Hypoglycemia Standing Ord. Hydroxyzine HCl (Hydroxyzine Hcl 25 Mg Tablet) 25 mg PO Q6H PRN PRN Reason: Anxiety Insulin Human Lispro (Insulin Lispro 100 Unit/Ml 3 Ml Vial) 0 unit SUBCUT BID [facility]; Protocol Last Admin: 05/26/21 10:37 Dose: Not Given Documented by: Lamotrigine (Lamotrigine 25 Mg Tablet) 25 mg PO BEDTIME [facility] Last Admin: 05/25/21 21:35 Dose: 25 mg Documented by: Magnesium Hydroxide (Milk Of Magnesia 30 Ml Oral.Susp) 30 ml PO DAILY PRN PRN Reason: Constipation Metformin HCl (Metformin Hcl 1,000 Mg Tablet) 1,000 mg PO BIDWM [facility] Last Admin: 05/26/21 07:50 Dose: 1,000 mg Documented by: Risperidone (Risperidone 1 Mg Tablet) 1 mg PO BID [facility] Last Admin: 05/26/21 07:50 Dose: 1 mg Documented by: Sertraline HCl (Sertraline Hcl 25 Mg Tablet) 25 mg PO DAILY [facility] Last Admin: 05/26/21 07:50 Dose: 25 mg Documented by: Trazodone HCl (Trazodone Hcl 50 Mg Tablet) 50 mg PO BEDTIME PRN PRN Reason: Insomnia Last Admin: 05/22/21 20:41 Dose: 50 mg Documented by: Allergies Allergies Allergy/AdvReac Type Severity Reaction Status Date / Time No Known Allergies Allergy Verified 05/21/21 11:17 Assessment & Plan Assessment & Plan (1) MADELINE (generalized anxiety disorder): Status: Acute Code(s): F41.1 - Generalized anxiety disorder (2) Bipolar disorder, current episode hypomanic: Status: Acute Code(s): F31.0 - Bipolar disorder, current episode hypomanic Assessment and Plan: [place] is a 75 y.o. Female who carries a diagnosis of bipolar I disorder. She was referred to crisis due to presenting as off baseline, disorganized thought process, agitated, has been pulling out her hair on specific spot on her head, increased anxiety, and poor sleep/ appetite. She has hx of IPLOC at [place] in 2020. No current OP providers. Presents with recent memory issues, remote memory appears intact. Has hx of workup for dementia 2 yr ago, results did not show any pathology but family would like her to be re-assessed. Plan: Increase Risperdal up to 1 mg po bid. Discontinue Zoloft Get collateral information Greater than 50% of the session was spent on counseling and/or coordination of care Reason for contiued inpatient stay Substantial Risk for: inability to function, rapid decompensation and med/psych decompensation
[2021-05-26 18:00] VITALS: BP 136/58; PULSE 80; RESP 18; TEMP 36.2; O2SAT 100
[2021-05-26 19:56] LABS: Glucose, Whole Blood 132 mg/dL (60-115)
[2021-05-26] MEDS: lamoTRIgine 25 MG TABLET PO (20:05)
[2021-05-27 07:00] VITALS: BMI 22.6
[2021-05-27 08:03] LABS: Glucose, Whole Blood 151 mg/dL (60-115)
[2021-05-27 09:38] VITALS: BP 120/55; PULSE 99; RESP 18; TEMP 36.1; O2SAT 99
[2021-05-27] MEDS: metFORMIN HCl 1,000 MG TABLET 1000 MG PO ×2 (09:45→16:56)
[2021-05-27] MEDS: cephALEXin 500 MG CAPSULE PO ×4 (09:45→20:23)
[2021-05-27] MEDS: Atorvastatin Calcium 20 MG TABLET PO (09:46)
[2021-05-27] MEDS: risperiDONE 1 MG TABLET PO (09:46)
[2021-05-27] MEDS: lamoTRIgine 25 MG TABLET PO ×2 (09:46→20:24)
[2021-05-27] MEDS: Gabapentin 100 MG CAPSULE PO ×2 (09:46→20:23)
[2021-05-27 10:27] LABS: Anion Gap 11 (12-20); Blood Urea Nitrogen 24 mg/dL (9-16); Calcium 9.5 mg/dL (8.4-10.2); Carbon Dioxide 31 mmol/L (22-29); Chloride 101 mmol/L (96-108); Creatinine Clr Calc Pharmacy 52.6; Estimated Glomerular Filt Rate > 60; Glucose Random 209 mg/dL (60-115); Potassium 4.4 mmol/L (3.3-5.1); Sodium 139 mmol/L (135-145)
--- NOTE | 2021-05-27 13:40 | HO.PSYCHPN ---
Subjective Subjective Date of Service: 05/27/21 Reason For Visit: si Subjective Notes: Conditional Voluntary Interim History: The nursing staff reported improvement of her rosemary but she is still hyperverbal. On interview, she reported that she slept well last nigh, no oversedation with the current treatment. Medication Compliance: Yes Side effects from medications: No Attending Groups: Intermittent Review of Systems Acute medical concerns: No Mental Status Exam Mental Status Exam Patient Appearance: Well Grooomed Patient Orientation: Person and Situation Level of Consciousness: Awake and Appropriate Patient Behavior: Appropriate Mood Description: Cheerful and Anxious Affect Description: Labile Patient Cognition Impaired: Yes Ability to Follow Directions: Good Speech Pattern: Rapid Hallucinations: None Delusions: Not Present Thought Process: Distracted and Linear Thought Content: positive for Circumstantial Judgement: Fair Diagnostics Vital Signs (24Hr): Vital Signs - 24 hr 05/26/21 18:00 05/27/21 09:38 Temperature 97.2 F 97 F Pulse Rate 80 99 Respiratory Rate 18 18 Blood Pressure 136/58 L 120/55 L Pulse Oximetry 100 99 Body Mass Index 22.6 Labs Results: 05/27/21 10:08 Labs: Laboratory Results - last 48 hr 05/25/21 05/26/21 05/26/21 20:56 07:42 19:49 Sodium Potassium Chloride Carbon Dioxide Anion Gap BUN Creatinine Estim Creat Clear Calc Estimated GFR POC Glucose 141 H 141 H 132 H Random Glucose Calcium 05/27/21 05/27/21 07:55 10:08 Sodium 139 Potassium 4.4 Chloride 101 Carbon Dioxide 31 H Anion Gap 11 L BUN 24 H Creatinine 0.74 Estim Creat Clear Calc 52.6 Estimated GFR > 60 POC Glucose 151 H Random Glucose 209 H Calcium 9.5 Medications Medications Current Medications Acetaminophen (Acetaminophen 325 Mg Tablet) 650 mg PO Q6H PRN PRN Reason: Headache/Pain Mild Scale (1-3) Al Hydroxide/Mg Hydroxide (Magnesium Hydrox/Alum Hydrox 30 Ml Oral.Susp) 30 ml PO Q6H PRN PRN Reason: Heartburn/Nausea Atorvastatin Calcium (Atorvastatin Calcium 20 Mg Tablet) 20 mg PO DAILY [facility] Last Admin: 05/27/21 09:46 Dose: 20 mg Documented by: Cephalexin HCl (Cephalexin 500 Mg Capsule) 500 mg PO QID [facility] Last Admin: 05/27/21 13:32 Dose: 500 mg Documented by: Dextrose (Dextrose 50 % 25 Gm/50 Ml Vial) 25 gm IVPUSH Q15M PRN; Protocol PRN Reason: per Hypoglycemia Standing Ord. Gabapentin (Gabapentin 100 Mg Capsule) 100 mg PO BID [facility] Last Admin: 05/27/21 09:46 Dose: 100 mg Documented by: Glucose (Glucose Gel 15 Gm Gel..Gram.) 15 gm PO Q15M PRN; Protocol PRN Reason: per Hypoglycemia Standing Ord. Hydroxyzine HCl (Hydroxyzine Hcl 25 Mg Tablet) 25 mg PO Q6H PRN PRN Reason: Anxiety Insulin Human Lispro (Insulin Lispro 100 Unit/Ml 3 Ml Vial) 0 unit SUBCUT BID [facility]; Protocol Last Admin: 05/27/21 08:52 Dose: Not Given Documented by: Lamotrigine (Lamotrigine 25 Mg Tablet) 25 mg PO BID [facility] Last Admin: 05/27/21 09:46 Dose: 25 mg Documented by: Magnesium Hydroxide (Milk Of Magnesia 30 Ml Oral.Susp) 30 ml PO DAILY PRN PRN Reason: Constipation Metformin HCl (Metformin Hcl 1,000 Mg Tablet) 1,000 mg PO BIDWM [facility] Last Admin: 05/27/21 09:45 Dose: 1,000 mg Documented by: Risperidone (Risperidone 1 Mg Tablet) 1 mg PO BID [facility] Last Admin: 05/27/21 09:46 Dose: 1 mg Documented by: Trazodone HCl (Trazodone Hcl 50 Mg Tablet) 50 mg PO BEDTIME PRN PRN Reason: Insomnia Last Admin: 05/22/21 20:41 Dose: 50 mg Documented by: Allergies Allergies Allergy/AdvReac Type Severity Reaction Status Date / Time No Known Allergies Allergy Verified 05/21/21 11:17 Assessment & Plan Assessment & Plan (1) MADELINE (generalized anxiety disorder): Status: Acute Code(s): F41.1 - Generalized anxiety disorder (2) Bipolar disorder, current episode hypomanic: Status: Acute Code(s): F31.0 - Bipolar disorder, current episode hypomanic Assessment and Plan: [place] is a 75 y.o. Female who carries a diagnosis of bipolar I disorder. She was referred to crisis due to presenting as off baseline, disorganized thought process, agitated, has been pulling out her hair on specific spot on her head, increased anxiety, and poor sleep/ appetite. She has hx of IPLOC at [place] in 2019. No current OP providers. Presents with recent memory issues, remote memory appears intact. Has hx of workup for dementia 2 yr ago, results did not show any pathology but family would like her to be re-assessed. Plan: Increase Risperdal up to 1 mg po qam and 2 mg po qhs. Discontinue Zoloft Get collateral information Greater than 50% of the session was spent on counseling and/or coordination of care Reason for contiued inpatient stay Substantial Risk for: inability to function, rapid decompensation and med/psych decompensation
[2021-05-27 18:00] VITALS: BP 138/63; PULSE 89; RESP 17; TEMP 36.6; O2SAT 99
[2021-05-27] MEDS: risperiDONE 2 MG TABLET PO (20:24)
[2021-05-27 20:52] LABS: Glucose, Whole Blood 154 mg/dL (60-115)
[2021-05-28 08:10] LABS: Glucose, Whole Blood 134 mg/dL (60-115)
[2021-05-28] MEDS: Atorvastatin Calcium 20 MG TABLET PO (08:34)
[2021-05-28] MEDS: cephALEXin 500 MG CAPSULE PO ×3 (08:34→16:26)
[2021-05-28] MEDS: risperiDONE 1 MG TABLET PO (08:34)
[2021-05-28] MEDS: lamoTRIgine 25 MG TABLET PO ×2 (08:34→20:44)
[2021-05-28] MEDS: metFORMIN HCl 1,000 MG TABLET 1000 MG PO ×2 (08:34→16:26)
[2021-05-28] MEDS: Gabapentin 100 MG CAPSULE PO ×2 (08:34→20:44)
[2021-05-28 09:15] VITALS: BP 116/56; PULSE 89; RESP 18; TEMP 36.3; O2SAT 99
--- NOTE | 2021-05-28 14:18 | HO.PSYCHPN ---
Subjective Subjective Date of Service: 05/28/21 Reason For Visit: si Subjective Notes: Conditional Voluntary Interim History: The nursing staff reported the patient has a slept well, she had been incontinent at times. On interview the patient denies new symptoms her hyperverbal speech has improved. No side effects with increase of Risperdal Review of Systems Review of Systems Yes all other systems are reviewed and are negative Mental Status Exam Mental Status Exam Patient Appearance: Well Grooomed Patient Orientation: Person Level of Consciousness: Awake Patient Behavior: Appropriate and Cooperative Mood Description: Calm Affect Description: Constricted Patient Cognition Impaired: Yes Ability to Follow Directions: Good Speech Pattern: Rapid Memory Description: Intact Hallucinations: None Thought Process: Goal Oriented Thought Content: positive for Circumstantial Judgement: Fair Diagnostics Vital Signs (24Hr): Vital Signs - 24 hr 05/27/21 18:00 05/28/21 09:15 Temperature 97.9 F 97.3 F Pulse Rate 89 89 Respiratory Rate 17 18 Blood Pressure 138/63 116/56 L Pulse Oximetry 99 99 Body Mass Index 22.6 Labs Results: 05/27/21 10:08 Labs: Laboratory Results - last 48 hr 05/26/21 05/27/21 05/27/21 19:49 07:55 10:08 Sodium 139 Potassium 4.4 Chloride 101 Carbon Dioxide 31 H Anion Gap 11 L BUN 24 H Creatinine 0.74 Estim Creat Clear Calc 52.6 Estimated GFR > 60 POC Glucose 132 H 151 H Random Glucose 209 H Calcium 9.5 05/27/21 05/28/21 20:27 07:59 Sodium Potassium Chloride Carbon Dioxide Anion Gap BUN Creatinine Estim Creat Clear Calc Estimated GFR POC Glucose 154 H 134 H Random Glucose Calcium Medications Medications Current Medications Acetaminophen (Acetaminophen 325 Mg Tablet) 650 mg PO Q6H PRN PRN Reason: Headache/Pain Mild Scale (1-3) Al Hydroxide/Mg Hydroxide (Magnesium Hydrox/Alum Hydrox 30 Ml Oral.Susp) 30 ml PO Q6H PRN PRN Reason: Heartburn/Nausea Atorvastatin Calcium (Atorvastatin Calcium 20 Mg Tablet) 20 mg PO DAILY [facility] Last Admin: 05/28/21 08:34 Dose: 20 mg Documented by: Cephalexin HCl (Cephalexin 500 Mg Capsule) 500 mg PO QID [facility] Last Admin: 05/28/21 13:53 Dose: 500 mg Documented by: Dextrose (Dextrose 50 % 25 Gm/50 Ml Vial) 25 gm IVPUSH Q15M PRN; Protocol PRN Reason: per Hypoglycemia Standing Ord. Gabapentin (Gabapentin 100 Mg Capsule) 100 mg PO BID [facility] Last Admin: 05/28/21 08:34 Dose: 100 mg Documented by: Glucose (Glucose Gel 15 Gm Gel..Gram.) 15 gm PO Q15M PRN; Protocol PRN Reason: per Hypoglycemia Standing Ord. Hydroxyzine HCl (Hydroxyzine Hcl 25 Mg Tablet) 25 mg PO Q6H PRN PRN Reason: Anxiety Insulin Human Lispro (Insulin Lispro 100 Unit/Ml 3 Ml Vial) 0 unit SUBCUT BID [facility]; Protocol Last Admin: 05/28/21 08:35 Dose: Not Given Documented by: Lamotrigine (Lamotrigine 25 Mg Tablet) 25 mg PO BID [facility] Last Admin: 05/28/21 08:34 Dose: 25 mg Documented by: Magnesium Hydroxide (Milk Of Magnesia 30 Ml Oral.Susp) 30 ml PO DAILY PRN PRN Reason: Constipation Metformin HCl (Metformin Hcl 1,000 Mg Tablet) 1,000 mg PO BIDWM [facility] Last Admin: 05/28/21 08:34 Dose: 1,000 mg Documented by: Risperidone (Risperidone 1 Mg Tablet) 1 mg PO DAILY [facility] Last Admin: 05/28/21 08:34 Dose: 1 mg Documented by: Risperidone (Risperidone 2 Mg Tablet) 2 mg PO BEDTIME [facility] Last Admin: 05/27/21 20:24 Dose: 2 mg Documented by: Trazodone HCl (Trazodone Hcl 50 Mg Tablet) 50 mg PO BEDTIME PRN PRN Reason: Insomnia Last Admin: 05/22/21 20:41 Dose: 50 mg Documented by: Allergies Allergies Allergy/AdvReac Type Severity Reaction Status Date / Time No Known Allergies Allergy Verified 05/21/21 11:17 Assessment & Plan Assessment & Plan (1) MADELINE (generalized anxiety disorder): Status: Acute Code(s): F41.1 - Generalized anxiety disorder (2) Bipolar disorder, current episode hypomanic: Status: Acute Code(s): F31.0 - Bipolar disorder, current episode hypomanic Assessment and Plan: Chian is a 75 y.o. Female who carries a diagnosis of bipolar I disorder. She was referred to crisis due to presenting as off baseline, disorganized thought process, agitated, has been pulling out her hair on specific spot on her head, increased anxiety, and poor sleep/ appetite. She has hx of IPLOC at [place] in 2020. No current OP providers. Presents with recent memory issues, remote memory appears intact. Has hx of workup for dementia 2 yr ago, results did not show any pathology but family would like her to be re-assessed. Plan: Increase Risperdal up to 1 mg po qam and 2 mg po qhs. Discontinue Zoloft Get collateral information Greater than 50% of the session was spent on counseling and/or coordination of care Reason for contiued inpatient stay Substantial Risk for: inability to function, rapid decompensation and med/psych decompensation
[2021-05-28 20:05] VITALS: BP 117/58; PULSE 86; RESP 17; TEMP 36.2; O2SAT 96
[2021-05-28] MEDS: hydrOXYzine HCL 25 MG TABLET PO (20:44)
[2021-05-28] MEDS: traZODone HCL 50 MG TABLET PO (20:44)
[2021-05-28] MEDS: risperiDONE 2 MG TABLET PO (20:45)
[2021-05-28 20:55] LABS: Glucose, Whole Blood 121 mg/dL (60-115)
[2021-05-29 06:00] VITALS: BP 134/58; PULSE 81; RESP 16; TEMP 36.2; O2SAT 97
[2021-05-29] MEDS: risperiDONE 1 MG TABLET PO (09:10)
[2021-05-29] MEDS: lamoTRIgine 25 MG TABLET PO ×2 (09:10→20:42)
[2021-05-29] MEDS: metFORMIN HCl 1,000 MG TABLET 1000 MG PO ×2 (09:10→17:23)
[2021-05-29] MEDS: Gabapentin 100 MG CAPSULE PO ×2 (09:11→20:42)
[2021-05-29] MEDS: Atorvastatin Calcium 20 MG TABLET PO (09:11)
[2021-05-29 09:29] LABS: Glucose, Whole Blood 241 mg/dL (60-115)
--- NOTE | 2021-05-29 17:04 | P.PNPSI_ITS ---
Subjective Subjective Date of Service: 05/29/21 Reason For Visit: si Interim History: Patient seen and discussed with team. Patient evaluated this morning and upon interview she reports her sleep is better but i'm still getting up, not as much though. Discussed melatonin but declined med changes, has been utilizing PRN trazodone. Mood is pretty good. Says she has a lot of things im worried about when i get back home, says she is worrying about making appointments for therapy and medical appointments. She continues to present as hyperverbal but affect is calmer and she speaking at a more appropriate rate. Appetite is good.? In the milieu, patient is safe and appropriate in behavior. Denies SI/SIB/HI upon inquiry. Denies irritability or assaultive ideation. Says she feels safe. Medication Compliance: Yes Side effects from medications: No Attending Groups: Yes Review of Systems Acute medical concerns: No Medical Review of Systems: unchanged Mental Status Exam Mental Status Exam Narrative: Patient Appearance:?Well Grooomed Patient Orientation:?Person Level of Consciousness:?Awake Patient Behavior:?Appropriate and Cooperative Mood Description:?Calm Affect Description:?Constricted Patient Cognition Impaired:?Yes Ability to Follow Directions:?Good Speech Pattern:?Rapid Memory Description:?Intact Hallucinations:?None Thought Process:?Goal Oriented Thought Content:?positive for Circumstantial Judgement:?Fair Diagnostics Vital Signs (24Hr): Vital Signs - 24 hr 05/28/21 20:05 05/29/21 06:00 Temperature 97.1 F 97.2 F Pulse Rate 86 81 Respiratory Rate 17 16 Blood Pressure 117/58 L 134/58 L Pulse Oximetry 96 97 Body Mass Index 22.6 Labs Results: 05/27/21 10:08 Labs: Laboratory Results - last 48 hr 05/27/21 05/28/21 05/28/21 20:27 07:59 20:39 POC Glucose 154 H 134 H 121 H 05/29/21 09:20 POC Glucose 241 H Medications Medications Current Medications Acetaminophen (Acetaminophen 325 Mg Tablet) 650 mg PO Q6H PRN PRN Reason: Headache/Pain Mild Scale (1-3) Al Hydroxide/Mg Hydroxide (Magnesium Hydrox/Alum Hydrox 30 Ml Oral.Susp) 30 ml PO Q6H PRN PRN Reason: Heartburn/Nausea Atorvastatin Calcium (Atorvastatin Calcium 20 Mg Tablet) 20 mg PO DAILY [facility] Last Admin: 05/29/21 09:11 Dose: 20 mg Documented by: Dextrose (Dextrose 50 % 25 Gm/50 Ml Vial) 25 gm IVPUSH Q15M PRN; Protocol PRN Reason: per Hypoglycemia Standing Ord. Gabapentin (Gabapentin 100 Mg Capsule) 100 mg PO BID [facility] Last Admin: 05/29/21 09:11 Dose: 100 mg Documented by: Glucose (Glucose Gel 15 Gm Gel..Gram.) 15 gm PO Q15M PRN; Protocol PRN Reason: per Hypoglycemia Standing Ord. Hydroxyzine HCl (Hydroxyzine Hcl 25 Mg Tablet) 25 mg PO Q6H PRN PRN Reason: Anxiety Last Admin: 05/28/21 20:44 Dose: 25 mg Documented by: Insulin Human Lispro (Insulin Lispro 100 Unit/Ml 3 Ml Vial) 0 unit SUBCUT BID [facility]; Protocol Last Admin: 05/29/21 09:26 Dose: Not Given Documented by: Lamotrigine (Lamotrigine 25 Mg Tablet) 25 mg PO BID [facility] Last Admin: 05/29/21 09:10 Dose: 25 mg Documented by: Magnesium Hydroxide (Milk Of Magnesia 30 Ml Oral.Susp) 30 ml PO DAILY PRN PRN Reason: Constipation Metformin HCl (Metformin Hcl 1,000 Mg Tablet) 1,000 mg PO BIDWM [facility] Last Admin: 05/29/21 09:10 Dose: 1,000 mg Documented by: Risperidone (Risperidone 1 Mg Tablet) 1 mg PO DAILY [facility] Last Admin: 05/29/21 09:10 Dose: 1 mg Documented by: Risperidone (Risperidone 2 Mg Tablet) 2 mg PO BEDTIME [facility] Last Admin: 05/28/21 20:45 Dose: 2 mg Documented by: Trazodone HCl (Trazodone Hcl 50 Mg Tablet) 50 mg PO BEDTIME PRN PRN Reason: Insomnia Last Admin: 05/28/21 20:44 Dose: 50 mg Documented by: Allergies Allergies Allergy/AdvReac Type Severity Reaction Status Date / Time No Known Allergies Allergy Verified 05/21/21 11:17 Assessment & Plan Assessment & Plan (1) MADELINE (generalized anxiety disorder): Status: Acute Code(s): F41.1 - Generalized anxiety disorder (2) Bipolar disorder, current episode hypomanic: Status: Acute Code(s): F31.0 - Bipolar disorder, current episode hypomanic Assessment and Plan: [place] is a 75 y.o. Female who carries a diagnosis of bipolar I disorder. She was referred to crisis due to presenting as off baseline, disorganized thought process, agitated, has been pulling out her hair on specific spot on her head, increased anxiety, and poor sleep/ appetite. She has hx of IPLOC at [place] in 2020. No current OP providers. Presents with recent memory issues, remote memory appears intact. Has hx of workup for dementia 2 yr ago, results did not show any pathology but family would like her to be re-assessed. Plan: Continue Risperdal up to 1 mg po qam and 2 mg po qhs. Discontinue Zoloft Weekend coverage: No changes to medication plan, as she is presenting as calmer, more organized. Continues to present with memory loss and confusion at times. Greater than 50% of the session was spent on counseling and/or coordination of care Reason for contiued inpatient stay Substantial Risk for: med/psych decompensation
[2021-05-29 18:00] VITALS: BP 123/58; PULSE 78; RESP 16; TEMP 36.1; O2SAT 95
[2021-05-29] MEDS: hydrOXYzine HCL 25 MG TABLET PO (20:42)
[2021-05-29] MEDS: traZODone HCL 50 MG TABLET PO (20:42)
[2021-05-29] MEDS: risperiDONE 2 MG TABLET PO (20:42)
[2021-05-29 20:53] LABS: Glucose, Whole Blood 127 mg/dL (60-115)
[2021-05-30 06:00] VITALS: BP 110/53; PULSE 83; RESP 16; TEMP 36; O2SAT 98
[2021-05-30] MEDS: lamoTRIgine 25 MG TABLET PO ×2 (09:06→20:54)
[2021-05-30] MEDS: metFORMIN HCl 1,000 MG TABLET 1000 MG PO ×2 (09:06→17:13)
[2021-05-30] MEDS: risperiDONE 1 MG TABLET PO (09:06)
[2021-05-30] MEDS: Gabapentin 100 MG CAPSULE PO ×2 (09:07→20:54)
[2021-05-30] MEDS: Atorvastatin Calcium 20 MG TABLET PO (09:07)
[2021-05-30 16:25] LABS: Glucose, Whole Blood 84 mg/dL (60-115)
[2021-05-30 18:00] VITALS: BP 128/80; PULSE 89; RESP 18; TEMP 37.2; O2SAT 97
[2021-05-30] MEDS: risperiDONE 2 MG TABLET PO (20:54)
[2021-05-30 21:28] LABS: Glucose, Whole Blood 175 mg/dL (60-115)
[2021-05-31 05:32] LABS: Glucose, Whole Blood 127 mg/dL (60-115)
[2021-05-31 06:00] VITALS: BP 111/53; PULSE 89; RESP 18; TEMP 36.3; O2SAT 99
--- NOTE | 2021-05-31 07:44 | P.PNPSI_ITS ---
Subjective Subjective Date of Service: 05/30/21 Reason For Visit: si Interim History: Patient seen and discussed with team. Patient evaluated this morning and upon interview she reports I seem to be doing well, feels she is sleeping longer, doing okay. Mood is good. Denies having questions or concerns. Says she is still anxious about going home and setting up appointments, as she will not be driving and will need rides. Feels her medications are helping. Hoping to go back to the [facility], I'm looking forward to getting back. In the milieu, patient is safe and appropriate in behavior. Denies SI/SIB/HI upon inquiry. Denies irritability or assaultive ideation. Says she feels safe. Medication Compliance: Yes Side effects from medications: No Attending Groups: Yes Review of Systems Acute medical concerns: No Medical Review of Systems: unchanged Mental Status Exam Mental Status Exam Narrative: Narrative:?Patient Appearance:?Well Grooomed Patient Orientation:?Person Level of Consciousness:?Awake Patient Behavior:?Appropriate and Cooperative Mood Description:?Calm Affect Description:?Constricted Patient Cognition Impaired:?Yes Ability to Follow Directions:?Good Speech Pattern:?Rapid Memory Description:?Intact Hallucinations:?None Thought Process:?Goal Oriented Thought Content:?positive for Circumstantial Judgement:?Fair Diagnostics Vital Signs (24Hr): Vital Signs - 24 hr 05/30/21 18:00 Temperature 98.9 F Pulse Rate 89 Respiratory Rate 18 Blood Pressure 128/80 Pulse Oximetry 97 Body Mass Index 22.6 Labs Results: 05/27/21 10:08 Labs: Laboratory Results - last 48 hr 05/29/21 05/29/21 05/30/21 09:20 20:49 12:08 POC Glucose 241 H 127 H 84 05/30/21 05/31/21 20:04 05:27 POC Glucose 175 H 127 H Medications Medications Current Medications Acetaminophen (Acetaminophen 325 Mg Tablet) 650 mg PO Q6H PRN PRN Reason: Headache/Pain Mild Scale (1-3) Al Hydroxide/Mg Hydroxide (Magnesium Hydrox/Alum Hydrox 30 Ml Oral.Susp) 30 ml PO Q6H PRN PRN Reason: Heartburn/Nausea Atorvastatin Calcium (Atorvastatin Calcium 20 Mg Tablet) 20 mg PO DAILY [facility] Last Admin: 05/30/21 09:07 Dose: 20 mg Documented by: Dextrose (Dextrose 50 % 25 Gm/50 Ml Vial) 25 gm IVPUSH Q15M PRN; Protocol PRN Reason: per Hypoglycemia Standing Ord. Gabapentin (Gabapentin 100 Mg Capsule) 100 mg PO BID [facility] Last Admin: 05/30/21 20:54 Dose: 100 mg Documented by: Glucose (Glucose Gel 15 Gm Gel..Gram.) 15 gm PO Q15M PRN; Protocol PRN Reason: per Hypoglycemia Standing Ord. Hydroxyzine HCl (Hydroxyzine Hcl 25 Mg Tablet) 25 mg PO Q6H PRN PRN Reason: Anxiety Last Admin: 05/29/21 20:42 Dose: 25 mg Documented by: Insulin Human Lispro (Insulin Lispro 100 Unit/Ml 3 Ml Vial) 0 unit SUBCUT BID [facility]; Protocol Last Admin: 05/30/21 20:55 Dose: Not Given Documented by: Lamotrigine (Lamotrigine 25 Mg Tablet) 25 mg PO BID [facility] Last Admin: 05/30/21 20:54 Dose: 25 mg Documented by: Magnesium Hydroxide (Milk Of Magnesia 30 Ml Oral.Susp) 30 ml PO DAILY PRN PRN Reason: Constipation Metformin HCl (Metformin Hcl 1,000 Mg Tablet) 1,000 mg PO BIDWM [facility] Last Admin: 05/30/21 17:13 Dose: 1,000 mg Documented by: Risperidone (Risperidone 1 Mg Tablet) 1 mg PO DAILY [facility] Last Admin: 05/30/21 09:06 Dose: 1 mg Documented by: Risperidone (Risperidone 2 Mg Tablet) 2 mg PO BEDTIME [facility] Last Admin: 05/30/21 20:54 Dose: 2 mg Documented by: Trazodone HCl (Trazodone Hcl 50 Mg Tablet) 50 mg PO BEDTIME PRN PRN Reason: Insomnia Last Admin: 05/29/21 20:42 Dose: 50 mg Documented by: Allergies Allergies Allergy/AdvReac Type Severity Reaction Status Date / Time No Known Allergies Allergy Verified 05/21/21 11:17 Assessment & Plan Assessment & Plan (1) MADELINE (generalized anxiety disorder): Status: Acute Code(s): F41.1 - Generalized anxiety disorder (2) Bipolar disorder, current episode hypomanic: Status: Acute Code(s): F31.0 - Bipolar disorder, current episode hypomanic Assessment and Plan: [place] is a 75 y.o. Female who carries a diagnosis of bipolar I disorder. She was referred to crisis due to presenting as off baseline, disorganized thought process, agitated, has been pulling out her hair on specific spot on her head, increased anxiety, and poor sleep/ appetite. She has hx of IPLOC at [place] in 2020. No current OP providers. Presents with recent memory issues, remote memory appears intact. Has hx of workup for dementia 2 yr ago, results did not show any pathology but family would like her to be re-assessed. Plan: Continue Risperdal up to 1 mg po qam and 2 mg po qhs. Discontinue Zoloft Weekend coverage: no changes to primary med plan as pt reports benefit, appears calmer and is sleeping well. Continues to present with memory loss and some confusion, anxiety/ agitation around this but overall redirectable. Greater than 50% of the session was spent on counseling and/or coordination of care Reason for contiued inpatient stay Substantial Risk for: med/psych decompensation
[2021-05-31] MEDS: Atorvastatin Calcium 20 MG TABLET PO (08:11)
[2021-05-31] MEDS: metFORMIN HCl 1,000 MG TABLET 1000 MG PO ×2 (08:11→16:32)
[2021-05-31] MEDS: risperiDONE 1 MG TABLET PO (08:11)
[2021-05-31] MEDS: lamoTRIgine 25 MG TABLET PO ×2 (08:11→21:11)
[2021-05-31] MEDS: Gabapentin 100 MG CAPSULE PO ×2 (08:11→21:11)
--- NOTE | 2021-05-31 13:31 | P.PNPSI_ITS ---
Subjective Subjective Date of Service: 05/31/21 Reason For Visit: si Subjective Notes: Conditional Voluntary Interim History: The nursing staff reported the patient has been sleeping well, she has good appetite and she is pleasant. The staff of occupational therapy reported that the patient has been attending to groups and she looks less hypomanic. On interview, the patient reports that she is doing fine, she is tolerating for the with the medications and she is willing to continue treatment as an outpatient. Medication Compliance: Yes Side effects from medications: No Attending Groups: Yes Review of Systems Acute medical concerns: No Medical Review of Systems: unchanged Mental Status Exam Mental Status Exam Patient Appearance: Well Grooomed Patient Orientation: Person and Situation Level of Consciousness: Awake and Appropriate Patient Behavior: Cooperative Mood Description: Calm Affect Description: Calm Ability to Follow Directions: Good Speech Pattern: Appropriate Hallucinations: None Delusions: Not Present Thought Process: Goal Oriented Thought Content: positive for Circumstantial and positive for Goal Oriented Judgement: Fair Diagnostics Vital Signs (24Hr): Vital Signs - 24 hr 05/30/21 18:00 05/31/21 06:00 Temperature 98.9 F 97.4 F Pulse Rate 89 89 Respiratory Rate 18 18 Blood Pressure 128/80 111/53 L Pulse Oximetry 97 99 Body Mass Index 22.6 Labs Results: 05/27/21 10:08 Labs: Laboratory Results - last 48 hr 05/29/21 05/30/21 05/30/21 20:49 12:08 20:04 POC Glucose 127 H 84 175 H 05/31/21 05:27 POC Glucose 127 H Medications Medications Current Medications Acetaminophen (Acetaminophen 325 Mg Tablet) 650 mg PO Q6H PRN PRN Reason: Headache/Pain Mild Scale (1-3) Al Hydroxide/Mg Hydroxide (Magnesium Hydrox/Alum Hydrox 30 Ml Oral.Susp) 30 ml PO Q6H PRN PRN Reason: Heartburn/Nausea Atorvastatin Calcium (Atorvastatin Calcium 20 Mg Tablet) 20 mg PO DAILY [facility] Last Admin: 05/31/21 08:11 Dose: 20 mg Documented by: Dextrose (Dextrose 50 % 25 Gm/50 Ml Vial) 25 gm IVPUSH Q15M PRN; Protocol PRN Reason: per Hypoglycemia Standing Ord. Gabapentin (Gabapentin 100 Mg Capsule) 100 mg PO BID [facility] Last Admin: 05/31/21 08:11 Dose: 100 mg Documented by: Glucose (Glucose Gel 15 Gm Gel..Gram.) 15 gm PO Q15M PRN; Protocol PRN Reason: per Hypoglycemia Standing Ord. Hydroxyzine HCl (Hydroxyzine Hcl 25 Mg Tablet) 25 mg PO Q6H PRN PRN Reason: Anxiety Last Admin: 05/29/21 20:42 Dose: 25 mg Documented by: Insulin Human Lispro (Insulin Lispro 100 Unit/Ml 3 Ml Vial) 0 unit SUBCUT BID [facility]; Protocol Last Admin: 05/31/21 09:13 Dose: Not Given Documented by: Lamotrigine (Lamotrigine 25 Mg Tablet) 25 mg PO BID [facility] Last Admin: 05/31/21 08:11 Dose: 25 mg Documented by: Magnesium Hydroxide (Milk Of Magnesia 30 Ml Oral.Susp) 30 ml PO DAILY PRN PRN Reason: Constipation Metformin HCl (Metformin Hcl 1,000 Mg Tablet) 1,000 mg PO BIDWM [facility] Last Admin: 05/31/21 08:11 Dose: 1,000 mg Documented by: Risperidone (Risperidone 1 Mg Tablet) 1 mg PO DAILY [facility] Last Admin: 05/31/21 08:11 Dose: 1 mg Documented by: Risperidone (Risperidone 2 Mg Tablet) 2 mg PO BEDTIME [facility] Last Admin: 05/30/21 20:54 Dose: 2 mg Documented by: Trazodone HCl (Trazodone Hcl 50 Mg Tablet) 50 mg PO BEDTIME PRN PRN Reason: Insomnia Last Admin: 05/29/21 20:42 Dose: 50 mg Documented by: Allergies Allergies Allergy/AdvReac Type Severity Reaction Status Date / Time No Known Allergies Allergy Verified 05/21/21 11:17 Assessment & Plan Assessment & Plan (1) MADELINE (generalized anxiety disorder): Status: Acute Code(s): F41.1 - Generalized anxiety disorder (2) Bipolar disorder, current episode hypomanic: Status: Acute Code(s): F31.0 - Bipolar disorder, current episode hypomanic Assessment and Plan: [place] is a 75 y.o. Female who carries a diagnosis of bipolar I disorder. She was referred to crisis due to presenting as off baseline, disorganized thought process, agitated, has been pulling out her hair on specific spot on her head, increased anxiety, and poor sleep/ appetite. She has hx of IPLOC at [place] in 2019. No current OP providers. Presents with recent memory issues, remote memory appears intact. Has hx of workup for dementia 2 yr ago, results did not show any pathology but family would like her to be re-assessed. Plan: Continue same treatment. Discharge tomorrow Greater than 50% of the session was spent on counseling and/or coordination of care Reason for contiued inpatient stay Substantial Risk for: inability to function, rapid decompensation and med/psych decompensation
[2021-05-31 18:00] VITALS: BP 129/60; PULSE 89; RESP 16; TEMP 36.6; O2SAT 98
[2021-05-31 20:44] LABS: Glucose, Whole Blood 229 mg/dL (60-115)
[2021-05-31] MEDS: risperiDONE 2 MG TABLET PO (21:11)
[2021-06-01] MEDS: metFORMIN HCl 1,000 MG TABLET 1000 MG PO (07:52)
[2021-06-01] MEDS: lamoTRIgine 25 MG TABLET PO (07:53)
[2021-06-01] MEDS: Atorvastatin Calcium 20 MG TABLET PO (07:53)
[2021-06-01] MEDS: Gabapentin 100 MG CAPSULE PO (07:53)
[2021-06-01] MEDS: risperiDONE 1 MG TABLET PO (07:53)
[2021-06-01 09:35] VITALS: BP 133/63; PULSE 83; RESP 16; TEMP 36.4; O2SAT 99
--- NOTE | 2021-06-01 11:33 | PM.PSYDC ---
DS: Providers Provider Date of Service: 06/01/21 Date of admission: 05/21/21 12:50 Date of discharge: 06/01/21 Primary care physician: Unknown Physician Consults: 05/22/21 08:04 Consult to Hospitalist Routine Consulting Provider: Hospitalist Reason For Exam: new admit from [facility] Attending physician on discharge: Josef Bowman DS: Diagnosis Discharge Diagnosis (1) Diabetes: Status: Acute DS: Medications Discharge Medications Home Medications: Home Medications Medication Instructions Recorded Confirmed blood sugar diagnostic (FreeStyle 05/21/21 05/21/21 Lite Strips) gabapentin 100 mg capsule cap PO 05/21/21 gabapentin 100 mg capsule cap PO 05/21/21 lamotrigine 25 mg tablet 1 tab PO DAILY 05/21/21 05/21/21 lancets 28 gauge (FreeStyle 05/21/21 05/21/21 Lancets) metformin 1,000 mg tablet 1 tab PO BID 05/21/21 05/21/21 sertraline 100 mg tablet 1 tab PO DAILY 05/21/21 05/21/21 simvastatin 20 mg tablet 1 tab PO BEDTIME 05/21/21 05/21/21 trazodone 50 mg tablet 0.5 tab PO BEDTIME PRN 05/21/21 05/21/21 Mental Status Exam Mental Status Exam Patient Appearance: Well Grooomed Patient Orientation: Person, Place and Situation Level of Consciousness: Awake and Appropriate Patient Behavior: Appropriate and Cooperative Mood Description: Calm Affect Description: Calm Ability to Follow Directions: Good Speech Pattern: Clear Memory Description: Intact Hallucinations: None Delusions: Not Present Thought Process: Goal Oriented Thought Content: positive for Circumstantial and positive for Linear Judgement: Fair Data Data Completed and Pending Completed studies during hospitalization [Text1]: 05/25/21 05/26/21 05/26/21 20:56 07:42 19:49 Sodium Potassium Chloride Carbon Dioxide Anion Gap BUN Creatinine Estim Creat Clear Calc Estimated GFR POC Glucose 141 H 141 H 132 H Random Glucose Calcium 05/27/21 05/27/21 05/27/21 07:55 10:08 20:27 Sodium 139 Potassium 4.4 Chloride 101 Carbon Dioxide 31 H Anion Gap 11 L BUN 24 H Creatinine 0.74 Estim Creat Clear Calc 52.6 Estimated GFR > 60 POC Glucose 151 H 154 H Random Glucose 209 H Calcium 9.5 05/28/21 05/28/21 05/29/21 07:59 20:39 09:20 Sodium Potassium Chloride Carbon Dioxide Anion Gap BUN Creatinine Estim Creat Clear Calc Estimated GFR POC Glucose 134 H 121 H 241 H Random Glucose Calcium 05/29/21 05/30/21 05/30/21 20:49 12:08 20:04 Sodium Potassium Chloride Carbon Dioxide Anion Gap BUN Creatinine Estim Creat Clear Calc Estimated GFR POC Glucose 127 H 84 175 H Random Glucose Calcium 05/31/21 05/31/21 05:27 20:32 Sodium Potassium Chloride Carbon Dioxide Anion Gap BUN Creatinine Estim Creat Clear Calc Estimated GFR POC Glucose 127 H 229 H Random Glucose Calcium 05/22/21 13:37 Urine clean catch - Clean Catch Midstream Urine Culture - Final No growth. DS: Summary Hospital Course Hospital Course: The patient was admitted for mood symptoms please see HPI from the admission note for more details. Since the patient did fairly well on lithium and Prozac in the past, and she was discharged from the previous facility without any mood stabilizers, we discussed with the patient and the patient's family about treatment options. Risperdal was started as a mood stabilizer, it was titrated slowly up to 3 mg a day with no side effects, no over sedation or EPS. The patient's mood improved, her flight of ideas and fast speech resolved fairly fast with the addition of Risperdal. We taper her off Zoloft sings the patient was not depressed and was worsening her mood lability. The patient was able to participate in groups, she was cooperative and pleasant and as per her family members, she went back to her baseline. There were no safety concerns. Since there were no safety concerns, discharge planning was discussed and aftercare was arranged by the criminal justice social worker and nursing staff Time spent discussing smoking cessation with patient: 3 to 10 minutes Status at Discharge Cognitive/behavioral status at discharge: At baseline Functional status at discharge: independent ambulation Overall status at discharge: patient is back to baseline Time Spent with Patient Time attestation: Total time spent providing and/or coordinating discharge services: Time spent: Less than 30 minutes Discharge Plan Discharge Patient Disposition: Home, Self-Care Discharge Diagnosis: Bipolar disorder type 1 most recent episode manic Referrals: [facility] [Other] - 06/09/21 (Referred for clinical services. [facility] to follow up at time of discharge to assess for services. [facility] to provide follow up visit to you on 06/09/21. ) Dr Hedrick [Other] - 06/09/21 11:15 am (Your next Primary care appointment with Dr Jaycee Hedrick is scheduled for 06/09/21 at 11:15am. ) Discharge Medications: New trazodone 50 mg Tablet 50 mg PO BEDTIME PRN (Reason: Insomnia) 30 Days Qty: 60 RF: 0 lamotrigine 25 mg Tablet 25 mg PO BID 30 Days Qty: 60 RF: 0 risperidone 2 mg Tablet 2 mg PO BEDTIME 30 Days Qty: 30 RF: 0 gabapentin 100 mg Capsule 100 mg PO BID 30 Days Qty: 60 RF: 0 risperidone 1 mg Tablet 1 mg PO DAILY 30 Days Qty: 30 RF: 0 metformin 1,000 mg Tablet 1,000 mg PO BIDWM 30 Days Qty: 60 RF: 0 Continued (DME) FreeStyle Lite Strips Strip 1 strip MISCELLANEOUS TID Qty: 10 RF: 0 simvastatin 20 mg tablet 1 tab PO BEDTIME 30 Days Qty: 30 RF: 0 (DME) lancets [FreeStyle Lancets] 28 gauge misc topical TID Qty: 100 RF: 0 Discontinued gabapentin 100 mg capsule PO RF: 0 lamotrigine 25 mg tablet 1 tab PO DAILY RF: 0 trazodone 50 mg tablet 0.5 tab PO BEDTIME PRN (Reason: Sleep) RF: 0 sertraline 100 mg tablet 1 tab PO DAILY RF: 0 metformin 1,000 mg tablet 1 tab PO BID RF: 0 gabapentin 100 mg capsule PO RF: 0 Discharge Orders: Discharge Order (Routine); Ordered 06/01/21 Ordered By: Josef Bowman Diet: diabetic diet Activity on Discharge: As tolerated Stand Alone Forms: Patient Portal Discharge page Care Plan Goals: Care plan goals achieved in the unit Health Concerns: Continue treatment of diabetes by her primary care physician Plan of Treatment: Continue medication management by prescriber as an outpatient. Continue psychotherapy. Assessment: Elderly female with a long history of bipolar disorder who used to be fairly stable with lithium and Prozac but she could not tolerated it and we have to replace lithium to Risperdal with for improvement of her mood lability
== END 2021-06-01 13:00 | disposition home or self-care (01) | DRG 885 ==
PROVIDERS: Registered Nurse; Admitting Provider Psychiatry & Neurology Psychiatry; Visit Provider Psychiatry & Neurology Psychiatry
DX: F31.0 Bipolar disorder, current episode hypomanic (principal); R45.851 Suicidal ideations; N39.0 Urinary tract infection, site not specified; F41.1 Generalized anxiety disorder; Z23 Encounter for immunization; Z79.84 Long term (current) use of oral hypoglycemic drugs; Z79.899 Other long term (current) drug therapy
CPT/HCPCS: 36415; 80048; 82947; 87086; 90686